=== PATIENT | female | born 1995 ===

== ENCOUNTER 2021-12-28 07:13 | Emergency (ER) | payer BC ==
[2021-12-28] MEDS ORDERED: Sodium Chloride 0.9% 10 ML Syringe FLUSH PRN ×2 (08:02→08:07)
[2021-12-28] MEDS ORDERED: HYDROmorphone 1 MG/ML Syringe IVPUSH ONE (08:05)
[2021-12-28] MEDS ORDERED: Ketorolac 30 MG/ML SDV IVPUSH ONE (08:06)
[2021-12-28] MEDS ORDERED: Iopamidol 612 MG/ML 100 ML Bottle IVPUSH ONE (08:07)
[2021-12-28] MEDS ORDERED: Sodium Chloride 0.9% 100 ML IV SCH (09:45)
== END 2021-12-28 11:33 | disposition home or self-care (01) ==
LOC: JD.ED 07:13
DX: M54.42 Lumbago with sciatica, left side (principal); M54.41 Lumbago with sciatica, right side; F17.210 Nicotine dependence, cigarettes, uncomplicated; Z88.6 Allergy status to analgesic agent; Z88.5 Allergy status to narcotic agent; Z79.899 Other long term (current) drug therapy
CPT/HCPCS: 36415; 71275; 71275-26; 74177; 74177-26; 80053; 81001; 82550; 83605; 83690; 84703; 85025; 85379; 85610; 85652; 85730; 86140; 96374; 96375; 99284-25; J1170; J1885; J3490; Q9967

== ENCOUNTER 2023-10-06 06:57 | Inpatient (IN) | payer BC ==
[2023-10-06] MEDS ORDERED: Calcium Carbonate 500 MG Tab.Chew PO PRN (07:47)
[2023-10-06] MEDS ORDERED: Sodium Chloride 0.9% 10 ML Syringe FLUSH PRN (07:47)
[2023-10-06] MEDS ORDERED: Misoprostol 25 MCG (1/4 of 100 MCG) Tab VAG PRN (07:47)
[2023-10-06] MEDS ORDERED: Ondansetron 4 MG/2 ML SDV IVPUSH PRN (07:47)
[2023-10-06] MEDS ORDERED: Oxytocin/Lactated Ringers 30 UNIT/500 ML BAG IV SCH (08:00)
[2023-10-06 08:34] LABS: BASOPHILS PERCENT AUTO 0.2 % (0.0-1.0); EOSINOPHILS ABSOLUTE AUTO 0.2 K/mm3 (0.0-0.4); EOSINOPHILS PERCENT AUTO 1.4 % (0.0-6.0); HEMATOCRIT 38.9 % (37.0-47.0); HEMOGLOBIN 13.1 gm/dl (12.0-16.0); IMMATURE GRAN ABSOLUTE AUTO 0.07 K/mm3 (0.00-0.05); IMMATURE GRAN PERCENT AUTO 0.6 % (0.0-0.4); LYMPHOCYTES ABSOLUTE AUTO 1.5 K/mm3 (1.0-4.8); LYMPHOCYTES PERCENT AUTO 11.8 % (24.0-44.0); MEAN CORPUSCULAR HEMOGLOBIN 28.4 pg (28.0-32.0); MEAN CORPUSCULAR HGB CONC 33.7 g/dl (32.0-36.0); MEAN CORPUSCULAR VOLUME 84.2 fl (83.0-99.0); MEAN PLATELET VOLUME 10.6 fl (9.4-12.3); MONOCYTES ABSOLUTE AUTO 0.7 K/mm3 (0.0-0.8); MONOCYTES PERCENT AUTO 5.5 % (0.0-8.0); NEUTROPHILS PERCENT AUTO 80.5 % (41.0-71.0); PLATELET COUNT,PLT 245 K/mm3 (150-400); RED BLOOD CELL COUNT 4.62 M/mm3 (4.10-5.30); WHITE BLOOD CELL COUNT,WBC 12.36 K/mm3 (3.9-11.3)
[2023-10-06 08:54] LABS: CREATININE 0.6 mg/dL (0.55-1.02); EST CRCL DRUG DOSING (CG) 143.33 mL/min
[2023-10-06] MEDS ORDERED: Sodium Chloride 0.9% 10 ML Syringe FLUSH SCH (09:00)
[2023-10-06] MEDS: Lactated Ringers 1,000 ML IV SCH (09:29)
[2023-10-06] MEDS: NIFEdipine 10 MG Cap PO ONE ×2 (09:29→18:24)
[2023-10-06] MEDS: Oxytocin/Lactated Ringers 30 UNIT/500 ML BAG IV SCH (09:33)
[2023-10-06 09:47] LABS: APPEARANCE,URINE CLEAR (Clear); BILIRUBIN,URINE NEGATIVE (Negative); COLOR,URINE YELLOW (Yellow); GLUCOSE,URINE NEGATIVE (Negative); KETONES,URINE NEGATIVE (Negative); LEUKOCYTE ESTERASE,URINE TRACE (Negative); NITRITE,URINE NEGATIVE (Negative); OCCULT BLOOD,URINE TRACE-INTACT (Negative); PROTEIN,URINE NEGATIVE (Negative); UROBILINOGEN,URINE 0.2 (0.2-1.0)
[2023-10-06 09:51] LABS: AMORPHOUS SEDIMENT,URINE MODERATE /hpf (NOT SEEN); BACTERIA,URINE MODERATE /hpf (FEW); MUCUS,URINE FEW /hpf (FEW)
[2023-10-06] MEDS ORDERED: ePHEDrine 50 MG/ML SDV IVPUSH PRN (10:05)
[2023-10-06] MEDS ORDERED: diphenhydrAMINE 50 MG/ML SDV IVPUSH PRN (10:05)
[2023-10-06] MEDS ORDERED: Bupivacaine/fentaNYL/NS 100 ML Bag EPIDUR PRN (10:05)
[2023-10-06] MEDS ORDERED: fentaNYL 100 MCG/2 ML SDV EPIDUR PRN (10:05)
[2023-10-06] MEDS: Acetaminophen 325 MG Tab PO PRN (17:19)
[2023-10-06] MEDS: Nalbuphine 10 MG/ML Syringe IVPUSH PRN (20:07)
[2023-10-06] MEDS: Lidocaine 1% 50 ML MDV INJECT PRN (21:52)
[2023-10-06] MEDS: Misoprostol 25 MCG (1/4 of 100 MCG) Tab VAG ONE (21:53)
[2023-10-07] MEDS: Docusate Sodium 100 MG Cap PO PRN (05:30)
[2023-10-07] MEDS: Ibuprofen 600 MG Tab PO SCH (05:30)
[2023-10-07] MEDS: Witch Hazel Medicated Pads 40/Jar TOP PRN (07:00)
[2023-10-07] MEDS: Benzocaine/Menthol 20%-0.5% Spray 78 GM Cannister TOP PRN (07:00)
[2023-10-07 07:19] LABS: HEMATOCRIT 31.3 % (37.0-47.0); MEAN CORPUSCULAR HEMOGLOBIN 28.5 pg (28.0-32.0); MEAN CORPUSCULAR HGB CONC 33.9 g/dl (32.0-36.0); MEAN CORPUSCULAR VOLUME 84.1 fl (83.0-99.0); MEAN PLATELET VOLUME 10.5 fl (9.4-12.3); PLATELET COUNT,PLT 228 K/mm3 (150-400); RED BLOOD CELL COUNT 3.72 M/mm3 (4.10-5.30); WHITE BLOOD CELL COUNT,WBC 16.59 K/mm3 (3.9-11.3)
[2023-10-07 07:21] LABS: HEMOGLOBIN 10.6 gm/dl (12.0-16.0)
[2023-10-07] MEDS: Prenatal Multivitamin with Calcium/Folic Acid/Iron Tab PO SCH (09:27)
[2023-10-07] MEDS: NIFEdipine 30 MG Tab.ER PO SCH (21:00)
== END 2023-10-08 10:45 | disposition home or self-care (01) | DRG 542 ==
LOC: JD.OB 06:57 → OBSVTOIN 21:03 → JD.OB 21:04
PROVIDERS: ADMIT Family Medicine; ATTEND Family Medicine
PROC: 10E0XZZ Delivery of Products of Conception, External Approach (ICD-10-PCS; principal; 2023-10-06)
PROC: 10907ZC Drainage of Amniotic Fluid, Therapeutic from Products of Conception, Via Natural or Artificial Opening (ICD-10-PCS; 2023-10-06)
PROC: 3E033VJ Introduction of Other Hormone into Peripheral Vein, Percutaneous Approach (ICD-10-PCS; 2023-10-06)
PROC: 0DQR0ZZ Repair Anal Sphincter, Open Approach (ICD-10-PCS; 2023-10-06)
DX: O13.4 Gestational [pregnancy-induced] hypertension without significant proteinuria, complicating childbirth (principal); Z3A.39 39 weeks gestation of pregnancy; Z37.0 Single live birth; O99.344 Other mental disorders complicating childbirth; F32.A Depression, unspecified; O98.52 Other viral diseases complicating childbirth; B00.9 Herpesviral infection, unspecified; O98.82 Other maternal infectious and parasitic diseases complicating childbirth; B37.31 Acute candidiasis of vulva and vagina; O70.20 Third degree perineal laceration during delivery, unspecified; O69.81X0 Labor and delivery complicated by cord around neck, without compression, not applicable or unspecified; O99.03 Anemia complicating the puerperium
CPT/HCPCS: 36415; 59025; 59409; 81001; 82565; 83615; 84450; 84460; 84520; 84550; 85025; 85027; 86592; 86850; 86900; 86901; A9270-GY; J2001; J2300; J7120; J7999